=== PATIENT | female | born 1990 | race Asian ===

== ENCOUNTER 2019-04-17 20:38 | Inpatient (IN) | payer OTHER ==
[2019-04-17] MEDS ORDERED: Buffered Lidocaine 1% SYRIN* 1 ML/SYRINGE INTRADERM ONE (21:50)
[2019-04-17] MEDS ORDERED: Lactated Ringers 1000 ML Bag* 1,000 ML IV ONE (21:50)
[2019-04-17] MEDS ORDERED: Lactated Ringers 1000 ML Bag* 1,000 ML IV SCH (22:00)
--- NOTE | 2019-04-17 22:01 | HP ---
General Information - Reason for Visit 28yo, , IUP@40+0 SROM, early labor - General Information Maternal Age: 28 Grav: 2 Para: 1 SAB: 0 IEA: 0 Estimated Due Date: 04/17/19 Determined By: LMP Gestational Age in Weeks/Days: 40+0 Maternal Blood Type and Rh: O Positive - Results this Serology/RPR Result: Non-Reactive Rubella Result: Immune HBsAg Result: Negative HIV Result: Negative GBS Culture Result: Negative Past Medical History Delivery History: Hx Uncomplicated Vaginal Delivery Pertinent Past Medical History: Non-Contributory Past Surgical History Comment: wisdom tooth extraction Pertinent Family History: Non-Contributory - Antepartal Records Antepartal Records: Reviewed, Complicated by: - Anemia (hgb 9.3) Review of Systems Constitutional: Uncomfortable CV Complaint: No Respiratory: Shortness of Breath: No Gastrointestinal: No Nausea/Vomiting, Normal Bowel Movement Genitourinary: No Dysuria, No Bleeding Musculoskeletal: Contractions Neurological: No Headache Movement: Normal Exam Allergies/Adverse Reactions: Allergies MS Shellfish Allergy [Shellfish Allergy] Allergy (Verified 03/03/16 22:50) Hives BP 104/55, temp 98.9, HR 74, RR 18, O2 100 Lab Values - Entire Visit: Laboratory Tests 04/17/19 21:20 Vag Amniotic Fld Detect Positive - Measurements Height: 5 ft 4 in Weight: 150 lb Weight in lbs: [id number] Body Mass Index (BMI): 25.7 Pre- Weight: 120 lb Weight Gained This : 30 lbs and 0 ozs - Exam Breast: Breast Exam Deferred CVA: No CVA Tenderness Extremities: No Edema Heart: Normal Rhythm/Heart Sounds HEENT: No Significant Findings Lungs: Clear Bilaterally Rectal: Rectal Exam Deferred Reflexes: DTR 2+ - Abdominal Exam Abdomen Exam: Non-Tender - Ultrasound/Biophysical Profile Ultrasound Status: Not Done Targeted Exam Findings Estimated Weight: 7.5lbs Presenting Part: Vertex Membrane Status: SROM Amniotic Fluid Evaluation: Gross Rupture, Positive ROM Plus - VE deferred EFM Findings - External Monitor Findings Baseline Heart Rate: 130 External Monitor Findings: Accelerations Present, No Pattern of Variable or Late Decelerations, Variability Moderate External Monitor Findings Comment: No evidence of metabolic acidemia Contractions: Irregular, Mild Assessment/Plan - Assessment 28yo, , IUP@40+0, SROM, early labor GBS negative, O+, rubella immune complicated by anemia, hgb 9.3 No evidence of metabolic acidemia Irregular contractions, good resting tone - Plan Plan: Admit - Anticipate Vaginal Delivery Plan Comment: Admit to L&D PARQ discussion of augmenting labor following SROM. Risks of infection discussed. Pt prefers to wait for active labor. Contractions becoming more painful. First labor 7 hours - 10 mins of pushing. Desires unmedicated VE deferred at this time - Date/Time of Admission Date of Admission: 04/17/19 Time of Admission: 22:00
[2019-04-17 22:50] LABS: Urine Benzodiazepine Screen None Detected (None Detect); Urine Opiates Screen None Detected (None Detect)
[2019-04-17 23:52] LABS: ABS Basophils 0.1 10^3/ul (0-0.2); ABS Eosinophils 0.1 10^3/ul (0-0.6); ABS Lymphocytes 2.6 10^3/ul (1.0-4.8); ABS Neutrophils 7.8 10^3/ul (1.5-7.7); Hematocrit 33 % (35-47); Hemoglobin 11.2 g/dL (12.0-16.0); Lymphocyte % 22.6 %; Mean Corpuscular HGB Conc 34 g/dL (31-36); Mean Corpuscular Hemoglobin 30 pg (27-31); Mean Corpuscular Volume 87 fL (80-97); Mean Platelet Volume 8.9 fL (7.4-10.4); Platelet Count 247 10^3/uL (150-450); Red Blood Count 3.78 10^6 /uL (3.70-4.87); Red Cell Distribution Width 15 % (10-15); White Blood Count 11.6 10^3/uL (3.5-10.8)
--- NOTE | 2019-04-18 00:27 | PN ---
Progress Note - Progress Note Date of Service: 04/18/19 Note: S: Pt is resting in bed. Becoming more uncomfortable with contractions. Feeling pressure. Requesting a vaginal exam. O: Temp 98.6 FHR: 120, +accels, no decels, moderate variability Regular contractions, good resting tone A: 28yo, , IUP@40 in active labor No evidence of metabolic acidemia P: Anticipate progression to
[2019-04-18] MEDS ORDERED: Calcium Carbonate CHEW TAB* 500 MG (TUMS) PO PRN (01:26)
[2019-04-18] MEDS ORDERED: Oxytocin in LR* 20 UNITS/1,000 ML BAG IVPB ONE (01:53)
[2019-04-18] MEDS ORDERED: Glycerin ADULT SUPP PR PRN (02:27)
[2019-04-18] MEDS ORDERED: Dibucaine 1% 28.35 GM TUBE PR PRN (02:27)
[2019-04-18] MEDS ORDERED: Witch Hazel PAD* JAR TOPICAL PRN (02:27)
[2019-04-18] MEDS ORDERED: Acetaminophen TAB* 325 MG PO PRN (02:27)
--- NOTE | 2019-04-18 02:32 | PROCNOTE ---
[facility] OB: Delivery Note - Delivery A Date of : 04/18/19 Time of : 01:49 Shepherd Sex: Female Weight at : 7 lb 6 oz Score 1 Minute: 8 Score 5 Minutes: 9 Gestational Age in Weeks and Days at Delivery: 40 Weeks and 1 Days Delivery Method: Spontaneous Vaginal Labor: Spontaneous Did Patient attempt ?: N/A, No Previous Amniotic Fluid: Clear Estimated Blood Loss: 700 Anesthesia/Analgesia: None Delivered By: Yarelis Bunch Nursery Level of Nursery: Regular/Bedside - Perineum Perineal Injury: None/Intact - Events Delivery Events of Note: Pitocin Only After Delivery, Post- Bleeding - Meds Given - Risk for Falls Delivered OB Patient- Risk for Falls: Heavy Bleeding Fall Risk: Patient is at High Risk for Falls - Additional Delivery Notes Additional Delivery Notes: Normal spontaneous vertex delivery of live female, 7lbs 6oz and Apgars 8/9. Delivered left occipital-anterior (LAKHWINDER), nuchal cordx1. Pt delivered on hands and knees Body delivered without difficulty. Baby placed on mothers abdomen. Cord clamped and cut by FOB after pulsations ceased. Placenta delivered spontaneously via fang, appears intact, 3vc. Pitocin given via IM, then IVPB for active management of 3rd stage. Misoprostol, 800mcg, SD for active vaginal bleeding. Perineum and vagina inspected, tissue intact. EBL 700mL. Mom and baby stable at time of note. Baby attempting to breastfeed.
[2019-04-18] MEDS ORDERED: Lactated Ringers 1000 ML Bag* 1,000 ML IV SCH (03:00)
[2019-04-18] MEDS ORDERED: Ibuprofen TAB* 600 MG PO SCH (03:00)
[2019-04-18] MEDS ORDERED: OXYTOCIN* 10 UNITS/ML 1 ML VIAL ONE (05:51)
[2019-04-18] MEDS ORDERED: Misoprostol TAB* 200 MCG ONE (05:52)
[2019-04-18 06:55] LABS: ABS Lymphocytes 1.7 10^3/ul (1.0-4.8); ABS Monocytes 1.1 10^3/ul (0-0.8); ABS Neutrophils 12.7 10^3/ul (1.5-7.7); Eosinophil % 0.1 %; Hematocrit 27 % (35-47); Hemoglobin 9.3 g/dL (12.0-16.0); Lymphocyte % 11.1 %; Mean Corpuscular HGB Conc 34 g/dL (31-36); Mean Corpuscular Hemoglobin 29 pg (27-31); Mean Corpuscular Volume 85 fL (80-97); Mean Platelet Volume 8.5 fL (7.4-10.4); Platelet Count 200 10^3/uL (150-450); Red Cell Distribution Width 15 % (10-15); White Blood Count 15.6 10^3/uL (3.5-10.8)
[2019-04-18] MEDS ORDERED: Simethicone TAB* 80 MG TAB.CHEW PO SCH (08:30)
[2019-04-18] MEDS: Docusate CAP* 100 MG PO SCH ×3 (08:51→20:08)
[2019-04-18] MEDS: Ferrous Gluconate TAB* 324 MG TAB PO SCH ×2 (10:15→20:08)
[2019-04-18] MEDS: Ibuprofen TAB* 600 MG PO SCH ×2 (16:32→20:10)
[2019-04-19 05:39] LABS: ABS Eosinophils 0.2 10^3/ul (0-0.6); ABS Lymphocytes 2.3 10^3/ul (1.0-4.8); ABS Neutrophils 7.6 10^3/ul (1.5-7.7); Eosinophil % 1.8 %; Hematocrit 26 % (35-47); Hemoglobin 8.9 g/dL (12.0-16.0); Lymphocyte % 20.8 %; Mean Corpuscular HGB Conc 34 g/dL (31-36); Mean Corpuscular Hemoglobin 29 pg (27-31); Mean Corpuscular Volume 87 fL (80-97); Mean Platelet Volume 7.9 fL (7.4-10.4); Nucleated Red Blood Cells % 0.1; Platelet Count 206 10^3/uL (150-450); Red Blood Count 3.03 10^6 /uL (3.70-4.87); Red Cell Distribution Width 15 % (10-15); White Blood Count 11.1 10^3/uL (3.5-10.8)
[2019-04-19 07:37] VITALS: BP 95/46
[2019-04-19] MEDS: Ferrous Gluconate TAB* 324 MG TAB PO SCH (09:52)
[2019-04-19] MEDS: Docusate CAP* 100 MG PO SCH (09:52)
== END 2019-04-19 14:00 | disposition home or self-care (01) | DRG 560 ==
LOC: MCHOBOUT 20:38 → MCHOB 21:42
PROVIDERS: ADMIT Advanced Practice Midwife; ATTEND Advanced Practice Midwife
PROC: 10E0XZZ Delivery of Products of Conception, External Approach (ICD-10-PCS; principal; 2019-04-18)
PROC: 4A1HXCZ Monitoring of Products of Conception, Cardiac Rate, External Approach (ICD-10-PCS; 2019-04-18)
DX: O99.03 Anemia complicating the puerperium (principal); O72.1 Other immediate postpartum hemorrhage; Z37.0 Single live birth; O69.81X0 Labor and delivery complicated by cord around neck, without compression, not applicable or unspecified; Z91.013 Allergy to seafood; Z3A.40 40 weeks gestation of pregnancy
CPT/HCPCS: 36415; 80307; 84112; 85025; 86850; 86900; 86901; A9270-GY; J2590